=== PATIENT | female | born 1980 | race Caucasian/White ===

== ENCOUNTER 2017-03-26 22:06 | Emergency (ER) | payer OTHER ==
[~2017-03-26] VITALS: Ht 167.6 cm; Wt 68.0 kg
--- NOTE | 2017-03-26 22:10 | NUR ---
TO BED 6 A 37 YO FEMALE BB RA89 FROM HOME C/O RIGHT HIP DISLOCATION WHILE PLAYING WITH CHILD. PATIENT WITH HISTORY OF RIGHT HIP DISLOCATION X6 IN THE PAST. + DISTAL CMS. VSS. INITIATED COMFORT MEASURES. AWAITING FOR ER MD PETERSON .
--- NOTE | 2017-03-26 22:27 | NUR ---
DR POMPA AT BEDSIDE FOR EVAL.
--- NOTE | 2017-03-26 22:28 | NUR ---
SPOKE WITH YINA AT [facility] AND INFORMED HIM OF THE PATIENTS ARRIVAL TO OUR ED
--- NOTE | 2017-03-26 22:31 | NUR ---
SPOKE WITH YINA AT [facility] TO ARRANGE TRANSFER /CASE ASSIGNED TO DR. MATTHEW ARENAS
--- NOTE | 2017-03-26 22:35 | NUR ---
XR AT BEDSIDE.
--- NOTE | 2017-03-26 22:58 | NUR ---
CALLED [facility] TO CHECK STATUS OF PATIENT, SHOULD EXPECT CALL FROM DR ARENAS SHORTLY
--- NOTE | 2017-03-26 23:27 | NUR ---
[facility] PROVIDED AUTHORIZATION NUMBER OF [id number]
--- NOTE | 2017-03-26 23:55 | NUR ---
DR. ROBERTS ACCEPTING/ PT WILL BE GOING TO [facility] / [phone] NUMBER FOR REPORT / BLS TRANSFER ETA 1230 /
--- NOTE | 2017-03-27 00:16 | NUR ---
REPORT GIVEN TO REYNALDO BRAUN RN AT [facility].
[2017-03-27 00:17] VITALS: BP 117/70
--- NOTE | 2017-03-27 00:36 | NUR ---
REPORT GIVEN TO [facility] FOR BLS TRANSFER. NO FURTHER COMPLAINTS FROM THE PATIENT. VSS. PATIENT PICKED UP BY 2 REGISTERED HEALTH NURSE.
== END 2017-03-27 00:42 | disposition short-term general hospital (02) ==
LOC: ER 22:10
DX: S73.034A Other anterior dislocation of right hip, initial encounter (principal); G40.909 Epilepsy, unspecified, not intractable, without status epilepticus; X58.XXXA Exposure to other specified factors, initial encounter; Y92.89 Other specified places as the place of occurrence of the external cause; Y93.89 Activity, other specified; Y99.8 Other external cause status
CPT/HCPCS: 73501; 99285; A4606; Z7610